=== PATIENT | female | born 1990 | race Caucasian/White ===

== ENCOUNTER 2017-01-23 10:35 | Emergency (ER) | payer OTHER ==
[~2017-01-23] VITALS: Ht 157.5 cm; Wt 79.5 kg
[~2017-01-23 10:35] MED LIST: PREN-75 PO
[2017-01-23 10:36] VITALS: BP 120/80; PULSE 69; RESP 10; O2SAT 100
--- NOTE | 2017-01-23 11:43 | ED.REPORT ---
HPI-General Illness Date of Service Jan 23, 2017 ED Provider: Dr. De La Fuente Pt is a healthy 26 y/o female presenting to the ED c/o sudden onset left lower rib pain onset 10:00 today. The patient was sitting at work doing paperwork and suddenly developed left lower rib pain which was followed by chest tightness and then left arm cramping/aching stiffness. She reports a cough and cold-like symptoms for 2 days. She is asymptomatic at time of interview. Pt denies abdominal pain, dysuria, nausea, vomiting, diarrhea, fever, chills, diaphoresis. Pt denies recent surgery, exogenous estrogen use, smoking, long periods of immobilization. She had an episode similar to this previously but not as severe; it was never worked up. Nursing Notes Stated Complaint: CHEST PAIN Chief Complaint: Female Abdominal Pain Nursing Notes Reviewed: Yes Allergies: Coded Allergies: oxycodone (Verified Allergy, Intermediate, rash, 06/14/15) cefaclor (Verified Allergy, Unknown, 01/10/15) Scheduled #103/Iron Fumarate/FA ( Tablet) 1 Each Tablet 1 EACH PO DAILY General Time Seen by MD: 11:42 Chief Complaint Other (left lower rib) Hx Obtained From: Patient Arrived By: Walk-in Sudden in Onset?: Yes Onset Occurred: 1 - 4 hours ago Symptom Duration: 1 - 15 minutes Location: : Chest (left lower rib) Quality: Painful Severity: Current: No pain currently Severity: Maximum: Moderate Similar Sx Previous: No Past Medical History Past Medical History No significant medical problems Past Surgical History Femur ORIF with jordan in place (>10 years ago) Reports: Family History Mother Had "lots" of complications. Otherwise not relevant 3 Smoking History Never Smoker Social History Occasional alcohol use in early before finding out she was . Alcohol Use: Denies alcohol use Drug Use: Denies drug use, THC Other Social History: Lives with children Occupation lives with partner, work at [employer] in [place] 08/2016 Ambulatory Status Independent Review of Systems Full Review of Systems Constitutional: Denies: Chills, Fever Ears / Nose / Throat: Reports: Nasal congestion Respiratory: Reports: Non-productive cough, Pleuritic pain, Shortness of breath Cardiovascular: Reports: Chest pain GI: Denies: Abdominal pain, Diarrhea, Nausea, Vomiting Female: Denies: Dysuria, Hematuria, Urinary frequency Complete sys rev & neg: except as marked. Physical Exam Vital Signs Vital Signs Date Time Temp Pulse Resp B/P Pulse Ox O2 Delivery O2 Flow Rate FiO2 01/23/17 13:40 36.7 71 16 112/72 100 Room Air 01/23/17 10:36 36.4 69 10 120/80 100 Room Air Initial VS: Reviewed, Vital signs normal Head / Eyes: Atraumatic, Normocephalic, PERRL ENT: Mucous membranes moist, Conjunctiva normal, No scleral icterus Neck: Supple, Full range of motion Cardiovascular: Regular rate & rhythm, Heart sounds normal, Intact distal pulses Extremities: Vascular intact, Neuro intact, No swelling, No tenderness Skin: Warm, Dry, No cyanosis Neurologic: Alert, Oriented, Nonfocal Psychiatric: Mood/affect normal, Behavior normal, Normal thought content General/Constitutional: Awake, Alert, No acute distress, Well appearing, Cooperative, Not toxic appearing Appearance / Presentation: Positive: Obese Respiratory / Chest: Atraumatic, Breath sounds NL, Breath sounds = bilat, No respiratory distress, No rales, No rhonchi, No wheezing, No retractions, No stridor, No chest tenderness, No chest wall deformity, No crepitus Abdomen: Atraumatic, Soft, Non-tender, No guarding, No rebound, No distention, No palpable mass Interpretation & Diagnostics Lab Results Interpretation Result Diagram: 01/23/17 1211 01/23/17 1211 Test 01/23/17 12:11 01/23/17 12:28 01/23/17 12:56 White Blood Count 7.6th/mm3 (3.8-10.1) Red Blood Count 4.34mil/mm3 (3.90-5.20) Hemoglobin 11.9g/dL (12.0-15.6) Hematocrit 37.4% (35.0-46.0) Mean Corpuscular Volume 86.2fL (81-100) Mean Corpuscular Hemoglobin 27.4pg (27.0-35.0) Mean Corpuscular Hemoglobin Concent 31.8% (32.0-37.0) Red Cell Distribution Width 12.4% (12.3-15.4) Platelet Count 216bil/L (150-400) Neutrophils (%) (Auto) 68.8% (40-74) Lymphocytes (%) (Auto) 25.5% (14-46) Monocytes (%) (Auto) 3.7% (4-12) Eosinophils (%) (Auto) 1.6% (0-5) Basophils (%) (Auto) 0.3% (0-3) D-Dimer < 0.5mg/L (<0.50) Sodium Level 140mEq/L (134-144) Potassium Level 4.0mEq/L (3.5-5.2) Chloride Level 103mEq/L (97-108) Carbon Dioxide Level 25mmol/L (18-29) Blood Urea Nitrogen 15mg/dL (6-20) Creatinine 0.74mg/dL (0.57-1.00) Estimat Glomerular Filtration Rate 135mL/min (>59) Glucose Level 134mg/dL (60-99) Calcium Level 8.9mg/dL (8.5-10.1) Total Bilirubin 0.4mg/dL (0.0-1.2) Aspartate Amino Transf (AST/SGOT) 18U/L (0-50) Alanine Aminotransferase (ALT/SGPT) 17U/L (0-32) Alkaline Phosphatase 78U/L (25-150) Total Protein 6.8g/dL (6.4-8.4) Albumin 4.3g/dL (3.4-5.0) Lipase 30U/L (13-60) Hold Soler Top Tube Received (Received) Hold Urine Received (Received) ECG Interpretation ECG Interpretation: Sinus rhythm rate 62 NS IVCD Normal early repol pattern Time: 12:48 Interpreted by: ED physician Normal ECG Interpretation: No acute ischemic changes X-Ray Chest Interpretation Chest Xray Interpretation: IMPRESSION: No acute cardiopulmonary disease. Dictated by: Papa Armstrong RRA Interpreted: Rachel Gallagher MD on 01/23/2017 at 13:01 Transcribed by: JELENA on 01/23/2017 at 13:01 View: Portable, AP & lat Interpretation / Wet Read by: Interpret - Radiologist Re-Eval/Medical Decision Med Decision/Clinical Course No obvious identified cause for symptoms can be found. Patient is discharge; recommended outpatient follow-up. Turn precautions given Source of Hx: Old records Time of Eval: 13:26 Re-Evaluation/Progress Note: Pt rechecked. Informed pt of plan for treatment. Pt understands and agrees with plan for treatment. F/U and RTER warnings given. All questions addressed. Counseled Regarding: Diagnosis, Lab results, Need for follow-up, When/why to return to ED Discharge & Departure Primary Impression: Chest pain Chest pain type: unspecified Qualified Code: R07.9 - Chest pain, unspecified Disposition: Home Discharge Condition All VS Reviewed: Yes Condition: Stable Patient Instructions: Chest Pain (ED) Additional Instructions: No dangerous cause for your chest pain was identified. Your EKG, chest x-ray, and labs were all normal. There was no sign of rib fracture, pneumonia, or heart attack. You can take 600 mg Ibuprofen every 6 hours as needed for pain. Follow-up with a primary care doctor later this week or early next week. Call today to schedule an appointment. [facility] would be happy to see you. Return to the emergency department for persistent increased chest pain, trouble breathing, profuse sweating, vomiting, high fever, or for other concerning symptoms. Referrals: [facility] Scribe Attestation Portions of this note were transcribed by Romulo Earl. I, Dr. De La Fuente personally performed the history, physical exam and medical decision-making; I reviewed and confirmed the accuracy of the information in the transcribed note. Signed by Selena Smallwood, 01/23/17 - 1299 Demario De La Fuente DO Jan 23, 2017 11:43 ROMULO EARL Jan 23, 2017 11:46
[2017-01-23 12:19] LABS: BASOPHILS % (AUTO) 0.3 % (0-3); EOSINOPHILS % (AUTO) 1.6 % (0-5); MONOCYTES % (AUTO) 3.7 % (4-12); Mean Corpuscular Hemoglobin 27.4 pg (27.0-35.0); Mean Corpuscular Volume 86.2 fL (81-100); NEUTROPHILS % (AUTO) 68.8 % (40-74); Platelet Count 216 bil/L (150-400)
--- NOTE | 2017-01-23 13:02 | DRSVH ---
PROCEDURE: X-RAY CHEST, TWO VIEWS ([id number]) INDICATIONS: cough, chest pain TECHNIQUE: 2 views of the chest were acquired. COMPARISON: None. FINDINGS: Surgical changes and devices: None. Lungs and pleura: No pleural effusions or pneumothorax. Lungs are clear. Mediastinum: Mediastinal contours are normal. Heart size is normal. Bones and chest wall: No suspicious bony abnormalities. Soft tissues appear unremarkable. IMPRESSION: No acute cardiopulmonary disease. Dictated by: Papa Armstrong [facility] Interpreted: Rachel Gallagher MD on 01/23/2017 at 13:01 Transcribed by: JELENA on 01/23/2017 at 13:01 Approved by: Rachel Gallagher MD, PhD on 01/23/2017 at 17:15
[2017-01-23 13:40] VITALS: BP 112/72; PULSE 71; RESP 16; O2SAT 100
== END 2017-01-23 13:40 | disposition home or self-care (01) ==
LOC: SED 10:35
DX: R07.81 Pleurodynia (principal); R25.2 Cramp and spasm; R05 Cough; Z88.5 Allergy status to narcotic agent; Z88.1 Allergy status to other antibiotic agents